=== PATIENT | female | born 1985 | race Two or more races ===

== ENCOUNTER 2022-03-04 14:50 | Emergency (ER) | payer MEDICAID ==
[~2022-03-04] VITALS: Ht 167.6 cm; Wt 90.9 kg
[2022-03-04] MEDS ORDERED: FLUCONAZOLE 100 MG TAB PO ONE (16:00)
[2022-03-04] MEDS ORDERED: FLUC150T2 PO (16:08)
[2022-03-04] MEDS ORDERED: CEPH-510 PO (16:08)
[2022-03-04 16:32] LABS: Urine Bacteria FEW /hpf (None Seen); Urine Blood Negative /uL (Negative); Urine Mucus FEW (None Seen); Urine Specific Gravity 1.045 (1.001-1.035); Urine WBC 7 /hpf (0 - 5)
[2022-03-04 16:52] VITALS: BP 119/61
== END 2022-03-04 17:11 | disposition home or self-care (01) ==
LOC: ER 14:50
DX: N76.0 Acute vaginitis (principal); E11.9 Type 2 diabetes mellitus without complications
CPT/HCPCS: 81001; 81025; 87086; 87210

== ENCOUNTER 2022-10-29 10:48 | Emergency (ER) | payer MEDICAID ==
[~2022-10-29] VITALS: Ht 157.5 cm; Wt 86.0 kg
[~2022-10-29 10:48] MED LIST: CEPH-510 PO; FLUC150T47 PO
[2022-10-29 11:19] VITALS: BP 141/92
[2022-10-29] MEDS ORDERED: SODIUM CHLORIDE 0.9% 1,000 ML IV ONE (12:30)
[2022-10-29 13:02] LABS: Urine Bacteria NONE SEEN /hpf (None Seen); Urine Blood TRACE /uL (Negative); Urine WBC 2 /hpf (0 - 5)
[2022-10-29] MEDS ORDERED: GLIP5TAB12 PO (15:39)
[2022-10-29] MEDS ORDERED: METF-490 PO (15:39)
[2022-10-29] MEDS ORDERED: METR-344 PO (15:39)
== END 2022-10-29 15:40 | disposition home or self-care (01) ==
LOC: ER 10:48
DX: N76.0 Acute vaginitis (principal); B96.89 Other specified bacterial agents as the cause of diseases classified elsewhere; E11.9 Type 2 diabetes mellitus without complications
CPT/HCPCS: 36415; 81001; 82962; 83036; 87070; 87210; 87491; 87591; 96360; 99283; J7030

== ENCOUNTER 2023-06-14 11:52 | Emergency (ER) | payer MEDICAID ==
[~2023-06-14] VITALS: Ht 162.6 cm; Wt 87.4 kg
[~2023-06-14 11:52] MED LIST changes: +GLIP5TAB12 PO; +METF-490 PO; +METR-344 PO
[2023-06-14 12:50] LABS: Urine Bacteria NONE SEEN /hpf (None Seen); Urine Blood Negative /uL (Negative); Urine Clarity Clear (Clear); Urine Color Yellow (Yellow); Urine Mucus FEW (None Seen); Urine Protein, UAD TRACE (Negative); Urine Specific Gravity 1.039 (1.001-1.035); Urine Urobilinogen Normal (Negative); Urine WBC 8 /hpf (0 - 5); Urine pH 5.5 (5.0-8.0)
[2023-06-14 13:23] VITALS: BP 133/69; PULSE 69; RESP 16; TEMP 98.2; O2SAT 100
[2023-06-14] MEDS ORDERED: PHEN-922 PO (13:29)
[2023-06-14] MEDS ORDERED: BACDST PO (13:29)
[2023-06-14] MEDS ORDERED: METR-344 PO (13:29)
[2023-06-14] MEDS: cefTRIAXone SOD 1,000 MG VL IM ONE (13:40)
== END 2023-06-14 13:54 | disposition home or self-care (01) ==
LOC: ER 11:52
DX: N39.0 Urinary tract infection, site not specified (principal); N76.0 Acute vaginitis; B96.89 Other specified bacterial agents as the cause of diseases classified elsewhere; E11.9 Type 2 diabetes mellitus without complications; Z79.899 Other long term (current) drug therapy
CPT/HCPCS: 81001; 96372; 99283; J0696

== ENCOUNTER 2023-12-07 23:39 | Emergency (ER) | payer MEDICAID ==
[~2023-12-07 23:39] MED LIST changes: +BACDST PO; +CEPH500C PO; -GLIP5TAB12 PO; +GLIP5TAB21 PO; +NABU-72 PO; +PHEN-922 PO
[2023-12-08 03:06] LABS: Basophils # (auto) 0.1 10 ^3/uL (0-0.2); Basophils % (auto) 0.7 % (0.0-2.0); Eosinophils # (auto) 0 10 ^3/uL (0-0.8); Eosinophils % (auto) 0.2 % (0.0-7.0); Hematocrit 41.7 % (36.0-46.0); Hemoglobin 14.7 g/dL (12.2-16.2); Lymphocytes # (auto) 1.9 10 ^3/uL (0.4-5.4); Lymphocytes % (auto) 19.7 % (10.0-50.0); Mean Corpuscular Hemoglobin 29.2 pg (28.0-32.0); Mean Corpuscular Hgb Conc. 35.2 g/dL (32.0-36.0); Mean Corpuscular Volume 83.1 fL (80.0-100.0); Monocytes # (auto) 0.8 10 ^3/uL (0-1.3); Monocytes % (auto) 7.7 % (0.0-12.0); Neutrophils # (auto) 7.1 10 ^3/uL (1.6-8.6); Neutrophils % (auto) 71.7 % (37.0-80.0); Nucleated Red Blood Cells % 0.1 %; Red Blood Cells 5.01 10^6/uL (4.0-5.20); Red Cell Distribution Width 13.3 % (11.8-14.3); White Blood Cell 9.9 10^3/uL (4.4-10.8)
[2023-12-08 03:18] LABS: Alanine Aminotransferase 33 U/L (7-40); Alkaline Phosphatase 117 U/L (46-116); Calcium 9.9 mg/dL (8.7-10.4); Carbon Dioxide 22 mmol/L (20-30); Chloride 106 mmol/L (98-107)
[2023-12-08 03:19] LABS: Albumin 4.5 g/dL (3.2-4.8); Anion Gap 7 (5-15); Aspartate Aminotransferase 9 U/L (13-40); BUN/Creatinine Ratio 14.9 (10.0-20.0); Bilirubin, Total 0.4 mg/dL (0.2-1.0); Blood Urea Nitrogen 11 mg/dL (9-23); Glucose 304 mg/dL (74-106); Potassium 4.4 mmol/L (3.5-5.1); Sodium 135 mmol/L (136-145); Total Protein 8.5 g/dL (5.7-8.2)
[2023-12-08] MEDS: SODIUM CHLORIDE 0.9% 1,000 ML IV ONE (03:39)
[2023-12-08 03:43] VITALS: BP 126/76; PULSE 82; RESP 14; TEMP 98.4; O2SAT 98
[2023-12-08] MEDS ORDERED: METF-372 PO (04:45)
== END 2023-12-08 04:58 | disposition home or self-care (01) ==
LOC: ER 23:39
DX: E11.65 Type 2 diabetes mellitus with hyperglycemia (principal); R42 Dizziness and giddiness; R53.1 Weakness
CPT/HCPCS: 36415; 80053; 82010; 82962; 85025; 96360; 99283; J7030